=== PATIENT | female | born 1975 | race African-American/Black ===

== ENCOUNTER 2016-12-13 19:28 | Emergency (ER) | payer OTHER ==
[~2016-12-13] VITALS: Ht 162.6 cm; Wt 99.8 kg
[~2016-12-13 19:28] MED LIST: METOPROLOL TART25 MG ORAL
[2016-12-13 20:00] VITALS: BP 149/84
--- NOTE | 2016-12-13 20:44 | Emergency Room Report ---
History of Present Illness General Chief Complaint: Laceration Source: Patient Present Illness HPI 41-year-old female presents to emergency Department complaining of laceration to the right middle finger times one hour. Patient states bleeding has subsided at this time she states she is up-to-date with tetanus. Patient verbalizes that she does not want to be injected with needles or have any sutures placed. Patient reports full sensation in the affected extremity she denies taking blood thinning medications. She states that she was cutting salmon and accidentally only cut her finger. Denies numbness tingling or loss of sensation or gross motor movements of the extremities, incontinence of bowel or bladder. Denies CP, Palpitations, LOC, AMS, dizziness, Changes in Vision, Sensation, paresthesias, or a sudden severe headache. Allergies: Coded Allergies: PENICILLINS (Verified Allergy, Unknown, 06/29/16) Patient History Past Medical History: see triage record Past Surgical History: none Pertinent Family History: none Last Menstrual Period: two weeks ago Now: No Immunizations: UTD Reviewed Nursing Documentation: PMH: Agreed, PSxH: Agreed Nursing Documentation-PMH Hx Hypertension: Yes Hx Gastrointestinal Problems: Yes - GASTRIC BYPASS Review of Systems All Other Systems: negative except mentioned in HPI Physical Exam Vital Signs Date Time Temp Pulse Resp B/P Pulse Ox O2 Delivery O2 Flow Rate FiO2 12/13/16 19:51 98.1 80 16 149/84 100 Room Air Sp02 EP Interpretation: reviewed, normal General Appearance: no apparent distress, alert, GCS 15, non-toxic Head: normocephalic, atraumatic Eyes: bilateral eye PERRL, bilateral eye normal inspection ENT: hearing grossly normal, normal pharynx, no angioedema, normal voice Neck: full range of motion, supple/symm/no masses Respiratory: lungs clear, normal breath sounds, speaking full sentences Cardiovascular #1: regular rate, rhythm, no edema Musculoskeletal: back normal, gait/station normal, normal range of motion, no calf tenderness, tender - ttp about laceration on the palmar aspect of the right middle finger. pt. has FROM against resistance Neurologic: alert, oriented x3, responsive, motor strength/tone normal, sensory intact, speech normal, other - pt is NVI to distal portion of the right 3rd finger. Psychiatric: judgement/insight normal, memory normal, mood/affect normal, no suicidal/homicidal ideation, anxious Skin: normal color, no rash, warm/dry, well hydrated, laceration - Right middle finger linear laceration approx 2 cm in length Lymphatic: no adenopathy Medical Decision Making PA Attestation Dr. Fitzgerald is my supervising Physician whom patient management has been discussed with. Diagnostic Impression: Primary Impression: Laceration ER Course 41-year-old female presents to emergency Department complaining of laceration to the right middle finger times one hour. Patient states bleeding has subsided at this time she states she is up-to-date with tetanus. Patient verbalizes that she does not want to be injected with needles or have any sutures placed. Patient reports full sensation in the affected extremity she denies taking blood thinning medications. She states that she was cutting salmon and accidentally only cut her finger. Ddx considered but are not limited to laceration, tendon injury, cellulitis, amputation Vital signs: are WNL, pt. is afebrile H&PE are most consistent with: Right middle finger linear laceration approx 2 cm in length, pt. has FROM against resistance. ORDERS: none required at this time, the diagnosis is clinical ED INTERVENTIONS: PT Declines sutures or local anesthesia. - The wound was copiously irrigated with normal saline, and explored for foreign body for which no FB was found. -Xeroform gauze is applied with sterile dressing. - Finger Splint applied to the right middle finger by chief medical technologist. Pt. remains neurovascularly intact. Discussed with patient: That suture closure is recommended, that she needs to keep finger in splint to allow healing to take place. d/w pt. follow up with PCP. DISCHARGE: At this time pt. is stable for d/c to home. Will provide printed patient care instructions, and any necessary prescriptions. Care plan and follow up instructions have been discussed with the patient prior to discharge. Last Vital Signs Date Time Temp Pulse Resp B/P Pulse Ox O2 Delivery O2 Flow Rate FiO2 12/13/16 19:51 98.1 80 16 149/84 100 Room Air Disposition: HOME, SELF-CARE Condition: Stable Scripts Acetaminophen* (TYLENOL EXTRA STRENGTH*) 500 Mg Tablet 500 MG ORAL Q6H, #30 TAB 0 Refills Prov: Hattie Musa P.A. 12/13/16 Bacitracin Zinc/Polymyx B Sulf (HM DOUBLE ANTIBIOTIC OINTMENT) 28.4 Gm Oint...g. 1 APPLIC TP BID, #28.4 GM Prov: Hattie Musa 12/13/16 Cephalexin* (KEFLEX*) 500 Mg Capsule 500 MG ORAL EVERY 12 HOURS for 7 Days, #14 CAP 0 Refills Prov: Hattie Musa 12/13/16 Patient Instructions: Nonsutured Laceration Care Additional Instructions: Take medications as directed. Follow up with PCP in 3-5 days Keep finger splinted for at least 2 weeks. Do not change dressing for 5 days. Return sooner to ED if new symptoms occur, or current symptoms become worse. - Please note that this Emergency Department Report was dictated using [employer] s[employer] technology software, occasionally this can lead to erroneous entry secondary to interpretation by the dictation equipment. Hattie Musa Dec 13, 2016 20:44
[2016-12-13] MEDS ORDERED: HM DOUBLE ANT28.4 G1 TP (20:45)
[2016-12-13] MEDS ORDERED: TYLENOL EXTRA500 MG ORAL (20:45)
[2016-12-13] MEDS ORDERED: CEPHALEXIN500 MG ORAL (20:45)
[2016-12-13 21:10] VITALS: BP 147/82
== END 2016-12-13 21:10 | disposition home or self-care (01) ==
LOC: EMR 20:55
DX: S61.212A Laceration without foreign body of right middle finger without damage to nail, initial encounter (principal); W26.0XXA Contact with knife, initial encounter; Y92.9 Unspecified place or not applicable
CPT/HCPCS: 99284

== ENCOUNTER 2017-01-07 07:53 | Emergency (ER) | payer MEDICAID, OTHER ==
[~2017-01-07] VITALS: Ht 162.6 cm; Wt 108.0 kg
[~2017-01-07 07:53] MED LIST changes: +CEPHALEXIN500 MG ORAL; +HM DOUBLE ANT28.4 G1 TP; +TYLENOL EXTRA500 MG ORAL
[2017-01-07 09:08] LABS: APPEARANCE,URINE CLOUDY; KETONES,URINE NEGATIVE (NEGATIVE); LEUKOCYTE ESTERASE ,URINE 1+ (NEGATIVE); NITRITE,URINE NEGATIVE (NEGATIVE); PH,URINE 5 (4.5-8.0); PROTEIN,URINE 2+ (NEGATIVE); UROBILINOGEN,URINE 4 MG/DL (0.0-1.0)
--- NOTE | 2017-01-07 09:09 | Emergency Room Report ---
History of Present Illness General Chief Complaint: Female Urogenital Problems Source: Patient Present Illness HPI 41 YO F with 1 week recurrent vaginal discharge "like cottage cheese" with itch. Started after taking antibiotic for hand lac (seen here recently). Improved with PMD-Rx-ed diflucan and topical cream but then came back. Denies dysuria, polyuria - "doesnt feel like UTI" that she had before. Denies abd pain , nausea/vomiting, back pain. Allergies: Coded Allergies: PENICILLINS (Verified Allergy, Unknown, 06/29/16) Patient History Past Medical History: HTN Past Surgical History: none Pertinent Family History: none Last Menstrual Period: 12/20/16 Now: No Immunizations: UTD Reviewed Nursing Documentation: PMH: Agreed, PSxH: Agreed Nursing Documentation-PMH Past Medical History: No History, Except For Hx Hypertension: Yes Hx Gastrointestinal Problems: Yes - gastric bypass 2001 [place] 2014 Review of Systems All Other Systems: negative except mentioned in HPI Physical Exam Vital Signs Date Time Temp Pulse Resp B/P Pulse Ox O2 Delivery O2 Flow Rate FiO2 01/07/17 08:21 98.2 96 15 126/80 100 Room Air Sp02 EP Interpretation: reviewed, normal General Appearance: normal inspection, well appearing, no apparent distress, alert Head: atraumatic ENT: normal ENT inspection, hearing grossly normal, normal voice Neck: normal inspection, full range of motion, supple, no bony tend Respiratory: normal inspection, lungs clear, normal breath sounds, no respiratory distress, no retraction, no wheezing Cardiovascular #1: regular rate, rhythm, no edema Gastrointestinal: normal inspection, normal bowel sounds, non tender, soft, no guarding, no hernia Genitourinary: no CVA tenderness Musculoskeletal: normal inspection, back normal, normal range of motion, Claudio' s Sign negative Neurologic: normal inspection, alert, oriented x3, responsive, liquefied petroleum gasfitter III-XII nml as tested, speech normal Psychiatric: normal inspection, judgement/insight normal, mood/affect normal Skin: normal inspection, normal color, no rash Medical Decision Making Diagnostic Impression: Primary Impression: Dysuria ER Course Not UA: No bacteria. Small LE Likely recurrent yeast infection Gave additional diflucan PO in ED Rx Pyridum PRN dysuria DC home with PMD followup Last Vital Signs Date Time Temp Pulse Resp B/P Pulse Ox O2 Delivery O2 Flow Rate FiO2 01/07/17 08:21 98.2 96 15 126/80 100 Room Air Status: improved Disposition: HOME, SELF-CARE Scripts Phenazopyridine Hcl* (PYRIDIUM*) 100 Mg Tablet 100 MG ORAL THREE TIMES A DAY for dysuria for 2 Days, #6 TAB Prov: RADHA WIN M.D. 01/07/17 Referrals: [facility] (PCP) RADHA WIN M.D. Jan 07, 2017 09:09
[2017-01-07 09:23] LABS: BACTERIA,URINE FEW /HPF; ICTOTEST NEGATIVE; SQUAMOUS EPITHELIAL CELL,UR MANY /LPF (NONE/OCC)
[2017-01-07] MEDS ORDERED: PHENAZOPYRIDIN100 MG ORAL (09:30)
[2017-01-07] MEDS ORDERED: Fluconazole 100mg tab ORAL ONE (09:30)
[2017-01-07 10:31] VITALS: BP 122/78
== END 2017-01-07 10:34 | disposition home or self-care (01) ==
LOC: EMR 08:17
DX: R30.0 Dysuria (principal); I10 Essential (primary) hypertension; N89.8 Other specified noninflammatory disorders of vagina; Z98.84 Bariatric surgery status; Z88.0 Allergy status to penicillin
CPT/HCPCS: 81003; 81025; 99283

== ENCOUNTER 2017-07-07 23:45 | Emergency (ER) | payer MEDICAID ==
[~2017-07-07] VITALS: Ht 162.6 cm; Wt 102.5 kg
[~2017-07-07 23:45] MED LIST changes: +PHENAZOPYRIDIN100 MG ORAL
[2017-07-08 00:16] VITALS: BP 123/74
[2017-07-08 01:10] LABS: APPEARANCE,URINE CLEAR; KETONES,URINE 1+ (NEGATIVE); NITRITE,URINE NEGATIVE (NEGATIVE); PH,URINE 5 (4.5-8.0); PROTEIN,URINE 2+ (NEGATIVE); UROBILINOGEN,URINE 1 MG/DL (0.0-1.0)
[2017-07-08 01:27] LABS: LEUKOCYTE ESTERASE ,URINE 1+ (NEGATIVE)
[2017-07-08 01:29] LABS: BACTERIA,URINE FEW /HPF; RBC,URINE 0-2 /HPF (0 - 2); SQUAMOUS EPITHELIAL CELL,UR MANY /LPF (NONE/OCC)
[2017-07-08 01:30] VITALS: BP 118/70
[2017-07-08 02:40] VITALS: BP 126/70
--- NOTE | 2017-07-08 05:07 | Emergency Room Report ---
History of Present Illness General Chief Complaint: Female Urogenital Problems Source: Patient, Medical Record Present Illness HPI 41-year-old female presents ED for evaluation. States that 4 days ago she had a miscarriage. She states she is here today because he some cramping sensations and dysuria. Patient was told by her STUDY HALL SUPERVISOR as she has a UTI. Is currently on Macrobid. Pain is 5/10, cramping, nonradiating. Denies any vaginal bleeding at this time. No other aggravating factors. Denies any other associated symptoms Allergies: Coded Allergies: PENICILLINS (Verified Allergy, Unknown, 06/29/16) Patient History Past Medical History: HTN Past Surgical History: other - gastric bypass Pertinent Family History: none Social History: Denies: smoking, alcohol use, drug use Last Menstrual Period: 07/06/17 Now: No : 5 Para: 3 Immunizations: UTD Reviewed Nursing Documentation: PMH: Agreed, PSxH: Agreed Nursing Documentation-PMH Hx Hypertension: Yes Hx Gastrointestinal Problems: Yes - gastric bypass 2001 [address] 2014 Review of Systems All Other Systems: negative except mentioned in HPI Physical Exam Vital Signs Date Time Temp Pulse Resp B/P (MAP) Pulse Ox O2 Delivery O2 Flow Rate FiO2 07/08/17 00:02 98.4 71 16 123/74 98 Room Air Sp02 EP Interpretation: reviewed, normal General Appearance: no apparent distress, alert, GCS 15, non-toxic Head: normocephalic, atraumatic Eyes: bilateral eye normal inspection, bilateral eye PERRL ENT: hearing grossly normal, normal pharynx, no angioedema, normal voice Neck: full range of motion, supple/symm/no masses Respiratory: chest non-tender, lungs clear, normal breath sounds, speaking full sentences Cardiovascular #1: regular rate, rhythm, no edema Cardiovascular #2: 2+ carotid (R), 2+ carotid (L), 2+ radial (R), 2+ radial (L) , 2+ dorsalis pedis (R), 2+ dorsalis pedis (L) Gastrointestinal: normal bowel sounds, non tender, soft, non-distended, no guarding, no rebound Rectal: deferred Genitourinary: normal inspection, no CVA tenderness Musculoskeletal: back normal, gait/station normal, normal range of motion, non- tender Neurologic: alert, oriented x3, responsive, motor strength/tone normal, sensory intact, speech normal Psychiatric: judgement/insight normal, memory normal, mood/affect normal, no suicidal/homicidal ideation Reflexes: 3+ bicep (R), 3+ bicep (L), 3+ tricep (R), 3+ tricep (L), 3+ knee (R) , 3+ knee (L) Skin: normal color, no rash, warm/dry, well hydrated Lymphatic: no adenopathy Medical Decision Making Diagnostic Impression: Primary Impression: Dysuria Additional Impression: History of miscarriage ER Course Hospital Course 41-year-old female presents to ED complaining of dysuria with suprapubic pain. recent history of miscarraige Differential diagnoses include: UTI, cystitis, pyelonephritis Clinical course Patient placed on stretcher. After initial history, physical exam reveals a middle-aged female in no acute distress Patient is denying any cramping pain at this time. No bleeding. Patient did state that her STUDY HALL SUPERVISOR did inform her that she would have some cramping and bleeding over the next several days I asked the patient if the cramping or pain is worse than usual. Patient says now. I did offer the patient an option for a ultrasound to check for retained products. Patient declined ultrasound saying she is followed up with her OB/ [facility] in 2 days Patient is asked to have her urine checked UA shows some bacteria. Patient is currently on Macrobid prescribed by her OB/ [facility]. I recommend that she continue the antibiotic as prescribed Diagnosis - dysuria, history of miscarraige Stable and discharged home. continue antibiotics as prescribed. followup with OBGYN. Return to ED if symptoms recur or worsen Labs Test 07/08/17 00:14 Urine Color Yellow Urine Appearance Clear Urine pH 5 (4.5-8.0) Urine Specific Bryan 1.020 (1.005-1.035) Urine Protein 2+ (NEGATIVE) Urine Glucose (UA) Negative (NEGATIVE) Urine Ketones 1+ (NEGATIVE) Urine Occult Blood 1+ (NEGATIVE) Urine Nitrite Negative (NEGATIVE) Urine Bilirubin Negative (NEGATIVE) Urine Urobilinogen 1 MG/DL (0.0-1.0) Urine Leukocyte Esterase 1+ (NEGATIVE) Urine RBC 0-2 /HPF (0 - 2) Urine WBC 2-4 /HPF (0 - 2) Urine Squamous Epithelial Cells Many /LPF (NONE/OCC) Urine Bacteria Few /HPF (NONE) Urine HCG, Qualitative Negative Last Vital Signs Date Time Temp Pulse Resp B/P (MAP) Pulse Ox O2 Delivery O2 Flow Rate FiO2 07/08/17 02:40 98.6 78 18 126/70 98 Room Air Status: improved Disposition: HOME, SELF-CARE Condition: Stable Referrals: [facility] (PCP) Patient Instructions: Urinary Tract Infection Additional Instructions: continue your antibiotics as directed. f/up with OBGYN this week JESUS PITT M.D. Jul 08, 2017 05:07
== END 2017-07-08 02:40 | disposition home or self-care (01) ==
LOC: EMR 07-08 00:10
DX: R30.0 Dysuria (principal); I10 Essential (primary) hypertension; Z88.0 Allergy status to penicillin; Z98.84 Bariatric surgery status
CPT/HCPCS: 81003; 81025; 99283